=== PATIENT | female | born 1955 | race Hispanic/Latino ===

== ENCOUNTER 2019-03-09 18:01 | Emergency (ER) | payer MEDICAID, MEDICARE ==
[2019-03-09 18:41] LABS: BASO # 0.1 K/uL (0.0-0.2); BASO % 1.1 % (0.0-2.0); EOS % 0.4 % (0.0-4.0); HEMOGLOBIN 12.9 g/dL (11.0-16.0); LYMPH # 1.3 K/uL (1.0-4.3); LYMPH % 14.8 % (20.0-40.0); MEAN CELL VOLUME 81.4 fL (81.0-99.0); MEAN CORPUSCULAR HEMOGLOBIN 27.1 pg (27.0-31.0); MEAN CORPUSCULAR HGB CONC 33.3 g/dL (33.0-37.0); MEAN PLATELET VOLUME 7.6 fL (7.2-11.7); MONO # 1.3 K/uL (0.0-0.8); MONO % 15.4 % (0.0-10.0); NEUT % 68.3 % (50.0-75.0); RBC 4.75 Mil/uL (3.80-5.20); RED CELL DISTRIBUTION WIDTH 13.4 % (11.5-14.5); WHITE BLOOD COUNT 8.7 K/uL (4.8-10.8)
[2019-03-09 18:55] LABS: ALB/GLOB RATIO 1.1 (1.0-2.1); ALBUMIN 4.1 g/dL (3.5-5.0); ALT/SGPT 11 U/L (9-52); AST/SGOT 30 U/L (14-36); BLOOD UREA NITROGEN 18 mg/dL (7-17); CALCIUM 8.9 mg/dl (8.6-10.4); GFR NON-AFRICAN AMERICAN > 60
[2019-03-09 19:12] VITALS: BP 119/81
[2019-03-09 19:37] VITALS: PULSE 105; TEMP 98.6; O2SAT 96
[2019-03-09 20:30] VITALS: RESP 18
--- NOTE | 2019-03-09 21:43 | C.PDOC ---
History Of Present Illness 63 year old female presents to the ED c/o sharp, non radiating right sided rib pain for the past week. Patient reports pain worsens with movement, palpation and coughing. Patient states she has been a smoker for the past 30 years. Rico branch denies fever, chills, headache, rash, SOB, palpitations, injury, fall, trauma. Time Seen by Provider: 03/09/19 18:16 Chief Complaint (Nursing): Chest Pain History Per: Patient History/Exam Limitations: no limitations Onset/Duration Of Symptoms: Days Current Symptoms Are (Timing): Still Present Quality: "Pain" Exacerbating Factors: Movement Recent travel outside of the [place]: No Additional History Per: Patient Past Medical History Reviewed: Historical Data, Nursing Documentation, Vital Signs Vital Signs: Last Vital Signs Temp 98.6 F 03/09/19 19:35 Pulse 105 H 03/09/19 19:35 Resp 18 03/09/19 20:27 BP 119/81 03/09/19 19:35 Pulse Ox 96 03/09/19 19:35 - Medical History PMH: No Chronic Diseases Surgical History: No Surg Hx - [facility] Procedures APPLICATION OF SPLINT (08/21/14) Family History: States: Unknown Family Hx - Social History Hx Tobacco Use: Yes Hx Alcohol Use: No Hx Substance Use: No - Immunization History Hx Tetanus Toxoid Vaccination: No Hx Influenza Vaccination: No Hx Pneumococcal Vaccination: No Review Of Systems Constitutional: Negative for: Fever, Chills Eyes: Negative for: Vision Change Cardiovascular: Positive for: Chest Pain. Negative for: Palpitations Respiratory: Negative for: Cough, Shortness of Breath Gastrointestinal: Negative for: Nausea, Vomiting, Abdominal Pain Skin: Negative for: Rash Neurological: Negative for: Weakness, Numbness, Headache Physical Exam - Physical Exam Appears: Non-toxic, No Acute Distress Skin: Normal Color, Warm, Dry, No Rash Head: Atraumatic, Normacephalic Eye(s): bilateral: Normal Inspection Neck: Normal ROM, Supple Chest: Symmetrical, No Tenderness Cardiovascular: Rhythm Regular Respiratory: Normal Breath Sounds, No Rales, No Rhonchi, No Wheezing Gastrointestinal/Abdominal: Soft, No Tenderness Extremity: Normal ROM, No Tenderness, No Swelling Neurological/Psych: Oriented x3, Normal Speech, Normal Cognition Gait: Steady ED Course And Treatment - Laboratory Results Result Diagrams: 03/09/19 18:38 03/09/19 18:38 Lab Results: Troponin I 0.0170 ng/mL (0.00-0.120) 03/09/19 18:38 Total Bilirubin 0.8 mg/dL (0.2-1.3) 03/09/19 18:38 AST 30 U/L (14-36) 03/09/19 18:38 ALT 11 U/L (9-52) 03/09/19 18:38 Alkaline Phosphatase 136 U/L (38-126) H 03/09/19 18:38 Total Protein 7.7 g/dL (6.3-8.3) 03/09/19 18:38 Albumin 4.1 g/dL (3.5-5.0) 03/09/19 18:38 Globulin 3.6 gm/dL (2.2-3.9) 03/09/19 18:38 Albumin/Globulin Ratio 1.1 (1.0-2.1) 03/09/19 18:38 ECG: Interpreted By Me, Viewed By Me ECG Rhythm: Sinus Tachycardia Interpretation Of ECG: Normal axis, normla intervals Rate From EC (BPM) O2 Sat by Pulse Oximetry: 96 (On RA) Pulse Ox Interpretation: Normal - Radiology CXR: Interpreted by Me, Viewed By Me CXR Interpretation: Yes: COPD (pattern). No: Infiltrates Medical Decision Making Medical Decision Making: Plan: * EKG * CXR * Labs Patient reports improvement to symptoms. Patient advised to follow up with PMD. Disposition - Disposition Referrals: [facility] [Outside] [facility] [Outside] Disposition: HOME/ ROUTINE Disposition Time: 19:10 Condition: GOOD Additional Instructions: JACK PUGA, thank you for letting us take care of you today. The emergency ms dical care you received today was directed at your acute symptoms. If you were prescribed any medication, please fill it and take as directed. It may take several days for your symptoms to resolve. Return to the Emergency Department if your symptoms worsen, do not improve, or if you have any other problems. Please contact your doctor or call one of the physicians/clinics you have been referred to that are listed on the Patient Visit Information form that is included in your discharge packet. Bring any paperwork you were given at discharge with you along with any medications you are taking to your follow up visit. Our treatment cannot replace ongoing medical care by a primary care provider outside of the emergency department. Thank you for allowing the [facility] team to be part of your care today. Follow up with the clinic in 3-5 days for re-evaluation and further management. Prescriptions: Ibuprofen [Motrin] 600 mg PO Q6 PRN #20 tab PRN Reason: Pain, Moderate (4-7) Instructions: Costochondritis (DC) Forms: [employer] ([place]) - Clinical Impression Clinical Impression: Costochondritis - Scribe Statement The provider has reviewed the documentation as recorded by the Scribe Misha Read All medical record entries made by the Scribe were at my direction and personally dictated by me. I have reviewed the chart and agree that the record accurately reflects my personal performance of the history, physical exam, medical decision making, and the department course for this patient. I have also personally directed, reviewed, and agree with the discharge instructions and disposition.
--- NOTE | 2019-03-10 17:26 | RAD ---
Date of service: 03/09/2019 PROCEDURE: CHEST RADIOGRAPH, 1 VIEW HISTORY: chest pain COMPARISON: None available. FINDINGS: LUNGS: Clear. PLEURA: No pneumothorax or pleural fluid seen. CARDIOVASCULAR: No aortic atherosclerotic calcification present. Normal. OSSEOUS STRUCTURES: No significant abnormalities. VISUALIZED UPPER ABDOMEN: Normal. OTHER FINDINGS: None. IMPRESSION: No active disease.
--- NOTE | 2019-03-12 13:15 | CARD ---
APPROVED REPORT Date of service: 03/09/2019 EKG Measurement Heart [id number] <Conclusion> Sinus tachycardia Possible left atrial enlargement Left ventricular hypertrophy Abnormal ECG
== END 2019-03-09 20:27 | disposition home or self-care (01) ==
LOC: C.ER 18:01
DX: M94.0 Chondrocostal junction syndrome [Tietze] (principal); Z72.0 Tobacco use